=== PATIENT | male | born 1965 | race Caucasian/White ===

== ENCOUNTER 2019-07-11 18:58 | Emergency (ER) | payer OTHER, SELFPAY ==
--- NOTE | 2019-07-11 19:13 | ED.GENADULT ---
HPI - General Adult General Chief complaint: Extremity Injury, Upper Stated complaint: injury left hand Time Seen by Provider: 07/11/19 19:13 Source: patient Mode of arrival: ambulatory Limitations: no limitations History of Present Illness HPI narrative: 53-year-old male patient [facility] complaints of a wound to the left hand between the thumb and index finger. Patient states he wound today yesterday. Patient states he was holding a board and trying to use a drill to put in a screw and states that he accidentally hit his hand with a screw. Patient states he is unsure of when his last tetanus shot was. 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 Patient states today when he took the Band-Aid off he noticed a white area which he thinks might be a tendon and went to come in and get it checked out. Related Data Home Medications Medication Instructions Recorded Confirmed Dexilant 07/11/19 Flomax 07/11/19 dutasteride 07/11/19 meloxicam 07/11/19 Allergies Allergy/AdvReac Type Severity Reaction Status Date / Time No Known Allergies Allergy Verified 07/11/19 19:33 Review of Systems Review of Systems: Narrative: CONSTITUTIONAL: Denies fever, chills, or sweats. EYES: Denies visual changes, redness, or discharge. ENT: Denies rhinorrhea, congestion, sore throat, or otalgia. CARDIOVASCULAR: Denies chest pain, palpitations, or edema. RESPIRATORY: Denies cough or dyspnea. GASTROINTESTINAL: Denies abdominal pain, nausea, vomiting, or diarrhea. GENITOURINARY: Denies dysuria or hematuria. SKIN: Denies rash or itching. MUSCULOSKELETAL: Denies back pain, joint pain, or myalgia. Positive wound to left hand since yesterday NEUROLOGIC: Denies headache, numbness, or weakness. PSYCHIATRIC: Denies anxiety or depression. PMFSH Comments At the time of my signature I agree with nursing past medical history, surgical, social, and family history. There is no relevant family history pertinent to the presenting complaint. Exam Narrative: Exam Narrative: GENERAL: Well-appearing, well-nourished, and in no acute distress. HEAD: Normocephalic, atraumatic. EYES: PERRLA and EOMI. ENT: Nares clear, no rhinorrhea or epistaxis. Mucous membranes moist. NECK: Supple. No lymphadenopathy CHEST: Clear to auscultation. No respiratory distress. HEART: Regular rate and rhythm. No murmur heard. Normal peripheral pulses. ABDOMEN: Soft, nontender, nondistended, normal active bowel sounds. EXTREMITIES: Normal range of motion. No edema. SKIN: Warm, dry, no rash. Patient has approximately 1.5 cm puncture wound noted to the web of the finger in between the thumb and index finger on the left hand. Patient does have a little bit of a white area coming from the wound that does appear to be some type of ligament or tendon. Patient does have excellent range of motion to all fingers and hand on the left. No numbness and tingling. Cap refill is normal. 2+ radial pulses noted. No obvious foreign body noted at this time. NEURO: No focal deficits. Alert and oriented x3. Course Vital Signs Vital signs: Vital signs reviewed. Medical Decision Making Differential Diagnosis Differential Diagnosis: Differential diagnosis: Paronychia, felon, cellulitis, flexor tenosynovitis, mallet finger, boutonniere deformity, flexor tendons, dislocated digits, unstable fracture, unstable ligamentous injury, closed space infection, carpal tunnel syndrome, contusion. Discussed with patient we will go ahead and update his tetanus shot today as well as discharge him home with a topical antibiotic ointment and an oral antibiotic. Discussed with patient he should clean the wound with regular soap and water, pat it dry and place antibiotic ointment with a Band-Aid and keep it covered while it is healing. Discussed with patient if he notices that he is having trouble moving his hand or fingers and he needs t
[2019-07-11 19:27] VITALS: BP 159/93; PULSE 65; RESP 18; TEMP 36.9; O2SAT 100
[2019-07-11] MEDS: TETANUS,DIPHTHERIA,AC PERTUSSIS ADULT (0.5 ML) BOOSTRIX IM (19:35)
== END 2019-07-11 19:50 | disposition home or self-care (01) ==
PROVIDERS: Emergency Provider Nurse Practitioner Family; PCP Student in an Organized Health Care Education/Training Program
DX: S61.402A Unspecified open wound of left hand, initial encounter (principal); Z23 Encounter for immunization; W29.8XXA Contact with other powered hand tools and household machinery, initial encounter
CPT/HCPCS: 90471; 90715; 99203; G0463

== ENCOUNTER 2019-11-11 09:33 | Outpatient (CLI) | payer OTHER, SELFPAY ==
--- NOTE | ~2019-11-11 | MR_ITS ---
EXAMINATION: MR abdomen wo/w con DATE: 11/11/2019 10:43 INDICATION: Liver mass greater than 1 cm in diameter. TECHNIQUE: Magnetic resonance imaging (MRI) of the abdomen was performed without and with 19 mL Multi Sasha intravenous contrast. Sequences included coronal T2-weighted FS FSE, coronal and axial FS FIEST A, axial T2-weighted FSE, coronal LAVA-flex, axial STIR FSE, axial DWI, axial dual-echo T1-weighted F SPGR, and axial LAVA. Postcontrast sequences included coronal LAVA-flex and a time course of axial LA VA. COMPARISON: None. FINDINGS: There is a 1.8 cm cyst in left hepatic lobe. There is a 4 mm cyst in right hepatic lobe. The gallblad fili, spleen, pancreas, adrenal glands, and left kidney are normal. There is a 10 mm cyst in right kid laura. There are no dilated loops of bowel. There are no pathologically enlarged lymph nodes. There is no free intraperitoneal fluid. IMPRESSION: 1. Benign cysts in the liver. Reviewed, dictated and finalized at location A.
[2019-11-11 10:10] LABS: Estimated Glomerular Filt Rate > 60
== END 2019-11-11 09:34 ==
PROVIDERS: PCP Student in an Organized Health Care Education/Training Program; Visit Provider Student in an Organized Health Care Education/Training Program
DX: K76.9 Liver disease, unspecified (principal)
CPT/HCPCS: 74183; A9577

== ENCOUNTER → 2020-03-12 09:18 | Outpatient (CLI) | payer OTHER, SELFPAY ==
--- NOTE | ~2020-03-12 | CT_ITS ---
EXAMINATION: CT abdomen pelvis w con DATE: 03/12/2020 09:56 INDICATION: Generalized abdominal pain and fullness TECHNIQUE: Computed tomography (CT) of the abdomen and pelvis was performed with 100 mL Omnipaque-350 intravenous contrast. Automated exposure control and iterative reconstruction technique were employe d. The dose-length product was 943.16 mGy-cm. COMPARISON: Abdomen MR dated 11/11/2019 FINDINGS: 6 mm left lower lobe nodule. Tiny calcified nodules in the right lower lobe consistent with old granu lomatous disease. Heart size is normal. No pericardial or pleural effusion. A couple unchanged hepati c cysts measuring 1.8 cm in the left hepatic lobe and 6 mm in the right hepatic lobe. Gallbladder, sp henrik, pancreas, bilateral adrenal glands and left kidney. 6 mm right renal cyst are normal. Normal ap pendix. No bowel obstruction. There is fatty mural infiltration of portions of the ileum which could be related to either body habitus or sequela of prior inflammation raising the possibility of Crohn's disease. Bladder is normal. Small fat-containing left inguinal hernia. No free intraperitoneal gas o r fluid. No pathologically enlarged abdominal or pelvic lymphadenopathy. Mild lumbar spondylosis. [place] at the left femoral neck. IMPRESSION: 1. No acute intra-abdominal/pelvic process. 2. Fatty mural infiltration of portions of the ileum likely related to body habitus although differen tial includes sequela of chronic inflammation such as in the setting of Crohn's disease. Correlate wi th clinical history. 3. Likely benign 6 mm left lower lobe nodule. Consider noncontrast low-dose chest CT in 6-12 months. Line 4. Small fat-containing left inguinal hernia. Reviewed, dictated and finalized at location A. E [employer] IMPRESSION: 1. No acute intra-abdominal/pelvic process. 2. Fatty mural infiltration of portions of the ileum likely related to body hab itus although differential includes sequela of chronic inflammation such as in the setting of Crohn's disease. Correlate with clinical history. 3. Likely benign 6 mm left lower lobe nodule. Consider noncontrast low-dose ankush st CT in 6-12 months. Line 4. Small fat-containing left inguinal hernia.
--- NOTE | ~2020-03-12 | CT_ITS ---
EXAMINATION:CT chest wo con DATE: 03/12/2020 09:56 INDICATION: Multiple pulmonary nodules. TECHNIQUE: Computed tomography (CT) of the chest was performed without intravenous contrast. Automate d exposure control and iterative reconstruction technique were employed. The dose-length product (DLP ) was 164.13 mGy-cm. COMPARISON: None. FINDINGS: There is mild scarring at the lung apices. There is a 3 mm nodule in right upper lobe. Ther e is a 4 mm nodule in right lower lobe. There is mild atelectasis bilaterally. There is a 6 mm nodule in left lower lobe. Calcified bilateral pulmonary nodules are consistent with old granulomatous dise ase. No pleural effusion. The heart size is normal. No pericardial effusion. There is a 1.4 cm cyst i n the liver. There is mild thoracic spondylosis. IMPRESSION: 1. Pulmonary nodules measuring up to 6 mm, probably benign. Consider noncontrast low-dose chest CT in 6-12 months. Reviewed, dictated and finalized at location B. [facility] CONSULTANT IMPRESSION: 1. Pulmonary nodules measuring up to 6 mm, probably benign. Consider noncontras t low-dose chest CT in 6-12 months.
[2020-03-12 09:36] LABS: Estimated Glomerular Filt Rate > 60
== END ==
PROVIDERS: PCP Student in an Organized Health Care Education/Training Program; Visit Provider Student in an Organized Health Care Education/Training Program
DX: R91.8 Other nonspecific abnormal finding of lung field (principal); K40.90 Unilateral inguinal hernia, without obstruction or gangrene, not specified as recurrent
CPT/HCPCS: 71250; 74177; Q9967

== ENCOUNTER 2020-06-14 14:57 | Emergency (ER) | payer OTHER, SELFPAY ==
[2020-06-14 15:07] VITALS: BP 143/86; PULSE 70; RESP 18; TEMP 36.4; O2SAT 100
--- NOTE | 2020-06-14 15:13 | ED.SKABFB ---
HPI - Skin/Abscess/Foreign Bdy General Chief complaint: Skin/Abscess/Foreign Body Stated complaint: rash Time Seen by Provider: 06/14/20 15:13 Source: patient Mode of arrival: ambulatory Limitations: no limitations History of Present Illness HPI narrative: Chaz DUMONT is a 54-year-old male with a PMH of IBS BPH who comes to [facility] with contact dermatitis on both arms. Doing yard work for 4 days the prior week and this morning noticed the vesicular bilateral arm rash that is pruritic Related Data Home Medications Medication Instructions Recorded Confirmed dexlansoprazole [Dexilant] 60 mg PO DAILY 06/14/20 06/14/20 dutasteride [Avodart] 0.5 mg PO DAILY 06/14/20 06/14/20 meloxicam 15 mg PO DAILY 06/14/20 06/14/20 pravastatin [Pravachol] 40 mg PO DAILY 06/14/20 06/14/20 tamsulosin [Flomax] 0.4 mg PO DAILY 06/14/20 06/14/20 Allergies Allergy/AdvReac Type Severity Reaction Status Date / Time No Known Allergies Allergy Verified 06/14/20 15:14 Review of Systems Review of Systems: Narrative: CONSTITUTIONAL: Denies fever, chills, sweats. EYES: Denies visual changes, redness, discharge. ENT: Denies rhinorrhea, congestion, sore throat, otalgia. CARDIOVASCULAR: Denies chest pain, palpitations, edema. RESPIRATORY: Denies dyspnea, wheezing, cough GASTROINTESTINAL: Denies abdominal pain, nausea, vomiting, diarrhea. GENITOURINARY: Denies dysuria, hematuria, abnormal discharge SKIN: Rash on both arms that is pruritic and vesicular NEUROLOGIC: Denies numbness, or focal weakness. PSYCHIATRIC: Denies anxiety or depression. [facility] Past Medical History Medical History (Updated 06/14/20 @ 15:34 by Deborah Brand CNP) BPH (benign prostatic hyperplasia) GERD (gastroesophageal reflux disease) HTN (hypertension) Family History Family History (Updated 06/14/20 @ 15:24 by Deborah Brand CNP) Other Hypertension Social History Social History (Updated 06/14/20 @ 15:25 by Deborah Brand CNP) Smoking status: Never smoker Alcohol intake: never Gender identity (if verbalized by the patient): Male Comments At time of signature, I agree with nursing past medical, surgical, social and family history. There is no relevant family history pertinent to the presenting complaint. Exam Narrative: Exam Narrative: GENERAL: This is a well-nourished, well-developed patient, in mild distress. HEAD: normocephalic, atraumatic. EYES: PERRL. Sclera clear/white. Vision is grossly intact. EARS: External ears normal, auditory canals clear and without drainage, TMs normal without perforation. Hearing grossly intact. NOSE: External nose normal without nasal discharge, nares without redness, no rhinorrhea. THROAT: Mucous membranes moist, NECK: Neck supple, non-tender CARDIOVASCULAR: Regular rate and rhythm without murmurs, gallops, or rubs. RESPIRATORY: Clear to auscultation. Breath sounds equal bilaterally. No wheezes, rales, or rhonchi. GASTROINTESTINAL: Abdomen soft, SKIN: warm, intact, as red vesicular rash on forearms of both arms that is sporadically scattered from elbow down to hand, pruritic NEURO: awake, alert, and oriented to person, place and time. There were no obvious focal neurologic abnormalities. Steady gait EXTREMITIES: Normal range of motion. BACK: Nontender without deformity Course Course Emergency Course: Patient comes to [facility] with rash on both forearms after doing yard work for 4 days last week he has noted a rash this morning and is pruritic Given prednisone 60 mg here Started on Medrol Dosepak Given directions on use of either hydrocortisone, calamine lotion, or Benadryl topically on the rash on his arms May use Benadryl 25 mg p.o. in addition for itching Given directions to wash all yard instruments that he used that may have oil on them Vital Signs Vital signs: Vital Signs Temperature 97.5 F L 06/14/20 15:07 Pulse Rate 70 06/14/20 15:07 Respiratory Rate 18 06/14/20 15:07 Blood
[2020-06-14] MEDS: predniSONE 20 MG TABLET 60 MG PO (15:39)
== END 2020-06-14 15:40 | disposition home or self-care (01) ==
PROVIDERS: Emergency Provider Nurse Practitioner
DX: L23.7 Allergic contact dermatitis due to plants, except food (principal); N40.0 Benign prostatic hyperplasia without lower urinary tract symptoms; K21.9 Gastro-esophageal reflux disease without esophagitis; I10 Essential (primary) hypertension
CPT/HCPCS: 99213; G0463; J7512

== ENCOUNTER 2023-11-23 08:17 | Outpatient (CLI) | payer OTHER, SELFPAY ==
--- NOTE | ~2023-11-23 | CT_ITS ---
CT Scan of the Chest without Contrast: Clinical Indication: Multiple pulmonary nodules Technique: Contiguous sections were acquired throughout the chest without intravenous contrast. Dose reduction technique was used on this scan by utilizing automated exposure control and iterative recon struction technique. The dose-length product (DLP) was 156.31 mGy-cm. COMPARISON: 03/12/2020 Findings: There is no evidence of any significant mediastinal, hilar or axillary lymphadenopathy. The mediastin al soft tissues appear normal. There is no evidence of pleural or pericardial effusion. Stable 5 mm nodule at the left lower lobe (axial image 92). Images through the upper abdomen reveal no abnormalities. Impression: Stable 5 mm left lower lobe pulmonary nodule. No other significant findings. Reviewed, dictated and finalized at location . Impression: Stable 5 mm left lower lobe pulmonary nodule. No other significant findings.
== END 2023-11-23 08:18 | disposition home or self-care (01) ==
LOC: MICIMG 08:18
PROVIDERS: PCP Student in an Organized Health Care Education/Training Program; Visit Provider Student in an Organized Health Care Education/Training Program
DX: R91.1 Solitary pulmonary nodule (principal)
CPT/HCPCS: 71250